=== PATIENT | male | born 1970 | race Two or more races ===

== ENCOUNTER 2020-12-03 00:20 | Emergency (ER) | payer OTHER ==
[~2020-12-03] VITALS: Ht 177.8 cm; Wt 74.8 kg
--- NOTE | 2020-12-03 00:37 | NUR ---
ED Nurse Note: Patient walked into the ED from home with c/o laceration on right eyebrow. Pt slipped at the bathroom and hit his right eyebrow on the side of the sink. Pt denies LOC. Last tet shot 2 yrs ago. Pt denies any other injury. No N/V
[2020-12-03 00:38] VITALS: BP 121/85
--- NOTE | 2020-12-03 00:38 | NUR ---
ED Nurse Note: ERMD at bedside
--- NOTE | 2020-12-03 00:46 | NUR ---
ED Nurse Note: Suturing done by ERMD at bedside
--- NOTE | 2020-12-03 00:48 | Emergency Room Report ---
History of Present Illness General Chief Complaint: Laceration Source: Patient Present Illness [facility] This a 50-year-old male with no past medical history. Presents with chief complaint of laceration from a fall. He was in the bathroom slipped and hit his head on the sink. He sustained a laceration over the right eyebrow area. No loss of consciousness. No other injury. Minimal pain. Bleeding controlled. Allergies: Coded Allergies: No Known Allergies (Unverified , 12/03/20) COVID-19 Screening Contact w/high risk pt: No Experienced COVID-19 symptoms?: No COVID-19 Testing performed INVENTORY AUDIT CLERK: No Patient History Past Medical History: none, see triage record, old chart reviewed Past Surgical History: none Pertinent Family History: none Social History: Denies: smoking Immunizations: other Reviewed Nursing Documentation: PMH: Agreed; PSxH: Agreed Nursing Documentation-PMH Past Medical History: No Stated History Review of Systems Eye: Denies: eye pain, blurred vision ENT: Denies: ear pain, nose congestion, throat swelling Respiratory: Denies: cough, shortness of breath Cardiovascular: Denies: chest pain, palpitations Gastrointestinal: Denies: abdominal pain, diarrhea, nausea, vomiting Musculoskeletal: Denies: back pain, joint pain Skin: Denies: rash Neurological: Denies: headache, numbness Endocrine: Denies: increased thirst, increased urine Hematologic/Lymphatic: Denies: easy bruising All Other Systems: negative except mentioned in HPI Physical Exam Vital Signs Date Time Temp Pulse Resp B/P (MAP) Pulse Ox O2 Delivery O2 Flow Rate FiO2 12/03/20 00:26 97.9 70 20 121/85 (97) 99 Room Air Vitals normal Sp02 EP Interpretation: reviewed, normal General Appearance: well appearing, no apparent distress, alert Head: normocephalic, other - He has a 2 cm laceration to the lateral aspect of the right eyebrow. Little gaping but no foreign body. Eyes: bilateral eye PERRL, bilateral eye EOMI ENT: hearing grossly normal, normal pharynx Neck: full range of motion, supple, no meningismus Respiratory: chest non-tender, lungs clear, normal breath sounds Cardiovascular #1: regular rate, rhythm, no murmur Gastrointestinal: normal bowel sounds, non tender, no mass, no organomegaly, no bruit, non-distended Musculoskeletal: back normal, normal range of motion, gait/station normal Psychiatric: mood/affect normal Procedures Laceration/Wound Repair Laceration/Wound Repair : Consent: Verbal Wound Location: face Wound Length (cm): 2 Wound Explored: clean Irrigated w/ Saline (ccs): 500 Anesthesia: 1% Lidocaine Volume Anesthetic (ccs): 2 Wound Repaired With: sutures Suture Size/Type: 5:0, other - Vicryl Number of Sutures: 3 Patient Tolerated: Well Complications: None Medical Decision Making Diagnostic Impression: Primary Impression: Facial laceration Qualified Codes: S01.81XA - Laceration without foreign body of other part of head, initial encounter ER Course This patient presents with a facial laceration. No fracture or foreign body. No syncope per history. Low risk for intracranial bleed. Will hold off CT for now. Last Vital Signs Date Time Temp Pulse Resp B/P (MAP) Pulse Ox O2 Delivery O2 Flow Rate FiO2 12/03/20 00:38 97.9 20 121/85 99 Room Air 12/03/20 00:26 70 Status: improved Disposition: HOME, SELF-CARE Condition: Stable Referrals: [facility],REFERRING (PCP) Patient Instructions: Laceration Care, Adult Additional Instructions: Keep wound clean. Sutures will fall off. Follow-up with your doctor in 7 days. Return if symptoms worsen. Chinmay Murillo MD Dec 03, 2020 00:48
[2020-12-03 00:52] VITALS: BP 121/85
--- NOTE | 2020-12-03 00:52 | NUR ---
ER DISCHARGE NOTE: Patient is cleared to be discharged per ERMD, pt is aox4, on room air, with stable vital signs. pt was given dc and prescription instructions, pt was able to verbalize understanding, pt id band removed. pt is able to ambulate with steady gait. pt took all belongings.
== END 2020-12-03 00:53 | disposition home or self-care (01) ==
LOC: EMR 00:41
DX: S01.111A Laceration without foreign body of right eyelid and periocular area, initial encounter (principal); W01.198A Fall on same level from slipping, tripping and stumbling with subsequent striking against other object, initial encounter; Y93.89 Activity, other specified; Y92.012 Bathroom of single-family (private) house as the place of occurrence of the external cause
CPT/HCPCS: 12011; Z7502; 99283